=== PATIENT | male | born 1980 | race Two or more races ===

== ENCOUNTER 2023-09-12 11:42 | Emergency (ER) | payer MEDICAID ==
[~2023-09-12] VITALS: Ht 170.2 cm; Wt 124.7 kg
[2023-09-12] MEDS ORDERED: LISI20TA56 PO (15:07)
[2023-09-12] MEDS: HYDROcodone-ACET 10/325MG TAB PO ONE (15:55)
[2023-09-12] MEDS: cloNIDine HCL 0.1 MG TAB PO ONE (15:56)
[2023-09-12] MEDS: ONDANSETRON ODT 4 MG TAB PO ONE (16:05)
[2023-09-12] MEDS: ONDANSETRON HCL 4 MG/2 ML VIAL IM ONE (19:05)
[2023-09-12] MEDS: HYDROmorphone HCL 2 MG/ML VL/or syr IM ONE (19:10)
[2023-09-12 19:38] VITALS: BP 144/81; PULSE 84; RESP 16; TEMP 98.2; O2SAT 94
== END 2023-09-12 19:38 | disposition home or self-care (01) ==
LOC: ER 11:42
DX: I16.0 Hypertensive urgency (principal); G44.209 Tension-type headache, unspecified, not intractable; Z87.891 Personal history of nicotine dependence
CPT/HCPCS: 70450; 96372; 99285; J1170; J2405; Q0162